=== PATIENT | male | born 1990 | race Two or more races ===

== ENCOUNTER 2020-02-24 18:05 | Emergency (ER) | payer OTHER ==
[~2020-02-24] VITALS: Ht 175.3 cm; Wt 113.4 kg
[2020-02-24 18:27] VITALS: Ht 175.3 cm; Wt 113.4 kg
[2020-02-24 19:38] LABS: AMPHETAMINE QUAL UR NONE DETECTED (See below)
[2020-02-24 19:59] LABS: BASOPHIL % 0.4 % (0-2); PLATELET COUNT 368 x10^3mcL (130-400); RED CELL DISTRIBUTION WIDTH 12.3 % (11.5-14.5)
[2020-02-24 20:12] LABS: CALCIUM 8.6 mg/dL (8.5-10.1); CARBON DIOXIDE 31.3 mmol/L (21-32); CHLORIDE SERUM 98 mmol/L (98-107); CREATININE SERUM 1.1 mg/dL (0.7-1.3); GFR1 > 60 mL/min; GLUCOSE SERUM 139 mg/dL (74-106); POTASSIUM SERUM 3.3 mmol/L (3.5-5.1); SODIUM SERUM 140 mmol/L (136-145)
[2020-02-24 20:14] LABS: ALBUMIN 4.6 g/dL (3.4-5.0); ALKALINE PHOSPHATASE 100 U/L (46-116); ALT/SGPT 99 U/L (16-63); AST/SGOT 92 U/L (15-37); BILIRUBIN TOTAL 2.19 mg/dL (0.20-1.00); LIPASE 105 IU/L (73-393)
[2020-02-24 20:18] LABS: TOTAL PROTEIN, SERUM 8.3 g/dL (6.4-8.2)
[2020-02-24 21:51] VITALS: BP 132/81
== END 2020-02-24 21:51 | disposition home or self-care (01) ==
LOC: ED 18:05
PROVIDERS: Emergency Medicine
DX: E86.0 Dehydration (principal); F10.10 Alcohol abuse, uncomplicated; E80.6 Other disorders of bilirubin metabolism; R11.10 Vomiting, unspecified
CPT/HCPCS: J2405; J7030